=== PATIENT | female | born 1980 | race Caucasian/White ===

== ENCOUNTER 2018-06-23 08:33 | Outpatient (CLI) | payer BC, SELFPAY ==
[2018-06-23 11:26] LABS: Glucose 98 mg/dL (70-100)
== END 2018-06-23 08:53 ==
PROVIDERS: PCP Family Medicine; Visit Provider Family Medicine
DX: I10 Essential (primary) hypertension (principal); E66.9 Obesity, unspecified; Z13.1 Encounter for screening for diabetes mellitus
CPT/HCPCS: 36415; 82947

== ENCOUNTER 2018-07-19 01:57 | Outpatient (CLI) | payer BC, SELFPAY ==
--- NOTE | 2018-07-19 08:30 | SATEXT_ITS ---
July 19, 2018 0830h Assessment: Leah presents for nutritional counseling for weight management. She is in the contemplation phase of bariatric surgery. She is attending an informational session at [facility] next week. In the meantime, she describes a long a history of weight struggles despite calorie reduction, carbohydrate reduction , and various weight loss programs. She currently eats quite moderately. She may have a bowl of frosted mini wheats for breakfast, a equatorial guine[place] yogurt, a turkey sandwich, an ounce of chips, and an apple during the day. Supper is generally protein and a vegetable. She drinks water, coffee, and tea. Currently her physical activity includes her activities of daily life. She does climb many flights of stairs daily as she lives on the third floor and she uses the stairs at work frequently. She is also in the contemplative stage of using her spinning bike. Leah is 62 [address] scale today. Nutritional Diagnosis: Class 3 obesity as evidenced by BMI of 48.8 kg/m2 Intervention: We discussed that Leah eats quite moderately. She would like to drink enough water to stay adequately hydrated. She made an action plan to drink 48-64 oz. of water daily. She also made an action plan to set an alarm to eat lunch daily as she often forgets and can end up going many hours without eating. Leah verbalizes a high confidence that she can succeed with these action plans. Monitoring and Evaluation: 1. Will monitor PO intake and weight monthly. 2. Will evaluate progress with action plans and adjust as needed as well as continue to progress. Thank you for the referral. Total time spent face to face with patient was 32 minutes.
== END 2018-07-19 02:17 ==
PROVIDERS: PCP Family Medicine; Visit Provider Dietitian, Registered
DX: E66.9 Obesity, unspecified (principal); Z68.42 Body mass index [BMI] 45.0-49.9, adult; Z71.3 Dietary counseling and surveillance
CPT/HCPCS: 97802

== ENCOUNTER 2018-08-11 01:27 | Outpatient (CLI) | payer BC, SELFPAY ==
--- NOTE | 2018-08-18 14:34 | W.NUTRFU ---
Date of service: 08/11/18 Time of Service: 08:00 Nutritional Follow up NOTE: Leah returns for nutritional counseling for weight management. She demonstrates that she is taking the necessary steps required for bariatric surgery. She demonstrates a high motivation to maintain a healthy lifestyle of weight management. Leah followed through with her action plans from our last visit. She drinks the goal amount of water we discussed (48-86 oz. per day) and she is eating lunch daily. She continues to have cereal for breakfast, a turkey sandwich for lunch with fruit, and a protein and a vegetable for dinner, She states her next action plan will be to include using her spinning bike four days per week for 20 to 30 minutes each time. She states she is confident she will be successful with this plan. Leah is 62 and 276.4 lbs. Her BMI is 49 kg/m2 Will monitor her progress with her action plans, her PO intake and her weight monthly. Will evaluate her nutrition care plan and adjust as needed. Time Spent in Nutritional Counseling and Treatment: 20 minutes
== END 2018-08-11 01:47 ==
PROVIDERS: PCP Family Medicine; Visit Provider Dietitian, Registered
DX: E66.9 Obesity, unspecified (principal); Z68.42 Body mass index [BMI] 45.0-49.9, adult; Z71.3 Dietary counseling and surveillance
CPT/HCPCS: 97803

== ENCOUNTER 2018-08-11 09:44 | Outpatient (REF) | payer BC, SELFPAY ==
--- NOTE | 2018-08-11 09:25 | PAPFT_PTH ---
PATIENT: Leah Bran LOC: [facility] U#:[id number] AGE/SX: 37/F ROOM: RE08/11/[address]: SHAYNE Dixon : 1980 BED: DIS: 08/11/2018 SPEC #: [id number] RECD: 08/11/18 12:49 STATUS: BETI REQ #: [id number] CACHORRO: 08/11/18 09:[address]: Folra Erickson DEPT: [facility] Cytology RECD BY: Elisha Duncan ENTERED: 08/11/18 12:49 SP TYPE: PAPFT OTHR DR: Justin Chicas MD Tissues: 1 - CX/ENDOCX FOR PAP SMEARS Procedures: PAP THIN PREP/UVM Screening HPV DNA PROBE Comments: [id number]
== END 2018-08-11 10:04 ==
LOC: LBN 09:44
PROVIDERS: PCP Family Medicine; Visit Provider Nurse Practitioner Family
DX: Z12.4 Encounter for screening for malignant neoplasm of cervix (principal); Z11.51 Encounter for screening for human papillomavirus (HPV)
CPT/HCPCS: 88142; 87624

== ENCOUNTER 2018-08-25 14:10 | Outpatient (CLI) | payer BC, SELFPAY ==
[2018-08-25 16:56] LABS: ALT 36 U/L (12-78); AST 21 U/L (15-37); CREATININE 0.88 mg/dL (0.55-1.02); Cholesterol 145 mg/dL (50-200); HDL Cholesterol 51 mg/dL (40-60); LDL CHOLESTEROL 75 mg/dL (<100); Potassium 4.3 mmol/L (3.5-5.1); Triglyceride 66 mg/dL (30-150)
== END 2018-08-25 14:30 ==
PROVIDERS: PCP Family Medicine; Visit Provider Family Medicine
DX: I10 Essential (primary) hypertension (principal); E66.9 Obesity, unspecified
CPT/HCPCS: 36415; 80061; 83721; 82565; 84132; 84450; 84460

== ENCOUNTER 2018-09-01 01:24 | Outpatient (CLI) | payer BC, SELFPAY | END 2018-09-01 01:44 | PROVIDERS: PCP Family Medicine; Visit Provider Dietitian, Registered | DX: E66.8 Other obesity (principal); Z68.42 Body mass index [BMI] 45.0-49.9, adult; Z71.3 Dietary counseling and surveillance | CPT/HCPCS: 97803 ==

== ENCOUNTER 2019-08-13 12:04 | Outpatient (REF) | payer BC, SELFPAY ==
[2019-08-14 14:30] LABS: Chlamydia Result Negative (Negative); GC Result Negative (Negative)
== END 2019-08-13 12:24 ==
LOC: LBN 12:04
PROVIDERS: PCP Family Medicine; Visit Provider Nurse Practitioner Family
DX: Z11.3 Encounter for screening for infections with a predominantly sexual mode of transmission (principal)
CPT/HCPCS: 87491; 87591

== ENCOUNTER 2020-08-18 16:13 | Outpatient (REF) | payer OTHER, SELFPAY ==
[2020-08-19 12:49] LABS: Chlamydia Result Negative (Negative); GC Result Negative (Negative)
== END 2020-08-18 16:33 ==
LOC: LBN 16:13
PROVIDERS: PCP Family Medicine; Visit Provider Nurse Practitioner Family
DX: Z11.3 Encounter for screening for infections with a predominantly sexual mode of transmission (principal)
CPT/HCPCS: 87491; 87591

== ENCOUNTER 2020-09-08 01:13 | Outpatient (CLI) | payer OTHER, SELFPAY ==
--- NOTE | 2020-09-08 07:00 | DI.MAMMO_ITS ---
EXAM: MG MAMMO SCREENING CLINICAL HISTORY: screening,Z12.39 TECHNIQUE: Bilateral full field digital CC and MLO mammographic images were obtained with 3D tomosyn thesis and utilizing computer aided detection (CAD). COMPARISON: None. FINDINGS: Masses/Architectural Distortion: None seen. Microcalcifications: No suspicious pleomorphic-type are seen. Skin Thickening/Nipple Retraction: None. IMPRESSION: 1. No significant interval change with no specific features of malignancy noted. 2. Unless there is more urgent need, screening mammography is recommended, as per [employer] [place] guidelines. BI-RADS Category 1 - Negative Breast Density - Category B - Scattered areas of fibroglandular density Breast density category C or D implies that the patient has dense breast tissue. Dense breast tissue is very common and is not abnormal but dense breast tissue can make it harder to find cancer on a ma mmogram. Also, dense breast tissue may increase their breast cancer risk. This information about the result of the mammogram report was provided to the patient to raise their awareness. Use this report when you speak with the patient about their risks for breast cancer, which includes their family hist ory. At that time, you may recommend for more screening tests (Ultrasound or MRI) as they might be us eful based on their risk. A negative radiographic report should not delay biopsy if a dominant or clinically suspicious mass is present. Up to ten percent of cancers are not identified on mammography. A negative report may reinforce clinical impression. Adenosis and dense breasts may obscure an underlying neoplasm. False positive reports average 6 to 10%. Patient will receive a letter notifying them of these results.
== END 2020-09-08 01:33 ==
PROVIDERS: PCP Family Medicine; Visit Provider Nurse Practitioner Family
DX: Z12.31 Encounter for screening mammogram for malignant neoplasm of breast (principal)
CPT/HCPCS: 77063; 77067

== ENCOUNTER 2021-08-24 09:20 | Outpatient (REF) | payer OTHER, SELFPAY ==
--- NOTE | 2021-08-24 08:15 | PAPFT_PTH ---
PATIENT: Leah Bran LOC: [facility] U#:[id number] AGE/SX: 40/F ROOM: RE08/24/[address]: SHAYNE Dixon : 1980 BED: DIS: 08/24/2021 SPEC #: [id number] RECD: 08/24/21 12:52 STATUS: BETI REQ #: [id number] CACHORRO: 08/24/21 08:[address]: Flora Erickson DEPT: [facility] Cytology RECD BY: Elisha Duncan ENTERED: 08/24/21 12:53 SP TYPE: PAPFT OTHR DR: Justin Chicas MD Tissues: 1 - CX/ENDOCX FOR PAP SMEARS Procedures: PAP THIN PREP/UVM Screening HPV DNA PROBE Comments: [id number]
[2021-08-26 07:27] LABS: Chlamydia Result Negative (Negative); GC Result Negative (Negative)
== END 2021-08-24 09:21 | disposition home or self-care (01) ==
LOC: LBN 09:20
PROVIDERS: PCP Family Medicine; Visit Provider Nurse Practitioner Family
DX: Z11.3 Encounter for screening for infections with a predominantly sexual mode of transmission (principal); Z12.4 Encounter for screening for malignant neoplasm of cervix; Z11.51 Encounter for screening for human papillomavirus (HPV); R87.810 Cervical high risk human papillomavirus (HPV) DNA test positive
CPT/HCPCS: 87491; 87591; 88142; 87624

== ENCOUNTER 2021-09-11 01:08 | Outpatient (CLI) | payer OTHER, SELFPAY ==
--- NOTE | 2021-09-11 12:00 | DI.MAMMO_ITS ---
Exam(s) MAMMO SCREENING EXAM: MAMMO SCREENING CLINICAL HISTORY: screening TECHNIQUE: Mammograms were interpreted according to the usual protocol including computer analysis w [id number] CAD system, tomosynthesis and C-view imaging. COMPARISON: 2020 FINDINGS: The breasts are composed of mainly fatty density , Breast Density category A. No suspicious masses or suspicious microcalcifications are seen. No skin thickening or abnormal axillary lymph nodes are seen. There has been no significant change from prior exams. IMPRESSION: BI-RADS Category 1, Negative mammogram Yearly screening mammography is recommended. Breast Density - Category A, fatty density. A negative radiographic report should not delay biopsy if a dominant or clinically suspicious mass is present. Up to ten percent of cancers are not identified on mammography. A negative report may reinforce clinical impression. Adenosis and dense breasts may obscure an underlying neoplasm. False positive reports average 6 to 10%. Patient will receive a letter notifying them of these results.
== END 2021-09-11 01:28 ==
PROVIDERS: PCP Family Medicine; Visit Provider Nurse Practitioner Family
DX: Z12.31 Encounter for screening mammogram for malignant neoplasm of breast (principal)
CPT/HCPCS: 77063; 77067

== ENCOUNTER 2022-09-15 02:17 | Outpatient (CLI) | payer BC, SELFPAY ==
[2022-09-15 09:59] LABS: Anion Gap 7.2 mmol/L (3-11); BUN 15 mg/dL (7-18); CO2 28.8 mmol/L (21.0-32.0); CREATININE 0.8 mg/dL (0.55-1.02); Calculated LDL 61 mg/dL (<100); Chloride 105 mmol/L (98-107); Cholesterol 136 mg/dL (<200); Estimated GFR 94.28 (mL/min/1.73m2); Glucose 68 mg/dL (74-106); HDL Cholesterol 66 mg/dL (40-60); Sodium 141 mmol/L (136-145); TSH (W/Ref FT4) 2.07 uIU/mL (0.36-3.74); Triglyceride 48 mg/dL (<150)
== END 2022-09-15 02:18 | disposition home or self-care (01) ==
LOC: LBO 02:17
PROVIDERS: PCP Family Medicine; Visit Provider Family Medicine
DX: E03.9 Hypothyroidism, unspecified (principal); E78.5 Hyperlipidemia, unspecified; E87.1 Hypo-osmolality and hyponatremia
CPT/HCPCS: 36415; 80048; 80061; 84443

== ENCOUNTER 2022-09-15 09:59 | Outpatient (REF) | payer BC, SELFPAY ==
--- NOTE | 2022-09-15 08:50 | PAPFT_PTH ---
PATIENT: Leah Bran LOC: [facility] U#:[id number] AGE/SX: 41/F ROOM: RE09/15/[address]: Janneth Johnson NP : 1980 BED: DIS: 09/15/2022 SPEC #: [id number] RECD: 09/15/22 13:02 STATUS: CAMIGeovanni REQ #: [id number] CACHORRO: 09/15/22 08:[address]: Janneth Johnson NP DEPT: [facility] Cytology RECD BY: Elisha Duncan ENTERED: 09/15/22 13:02 SP TYPE: PAPFT OTHR DR: Justin Chicas MD Tissues: 1 - CX/ENDOCX FOR PAP SMEARS Procedures: PAP THIN PREP/UVM Screening HPV DNA PROBE Comments: [id number]
== END 2022-09-15 10:00 | disposition home or self-care (01) ==
LOC: LBN 09:59
PROVIDERS: PCP Family Medicine; Visit Provider Nurse Practitioner Women's Health
DX: Z12.4 Encounter for screening for malignant neoplasm of cervix (principal); R87.610 Atypical squamous cells of undetermined significance on cytologic smear of cervix (ASC-US); Z11.51 Encounter for screening for human papillomavirus (HPV); R87.810 Cervical high risk human papillomavirus (HPV) DNA test positive
CPT/HCPCS: 88142; 87624

== ENCOUNTER 2022-09-30 01:15 | Outpatient (CLI) | payer BC, SELFPAY ==
--- NOTE | 2022-09-30 07:30 | DI.MAMMO_ITS ---
Exam(s) MAMMO SCREENING EXAM: MAMMO SCREENING CLINICAL HISTORY: screening. TECHNIQUE: Bilateral full field digital CC and MLO mammographic images were obtained with 3D tomosyn thesis and utilizing computer aided detection (CAD). COMPARISON: Prior mammograms were reviewed. FINDINGS: There has been no significant change in the appearance and distribution of the fibroglandular tissue. There are no CAD designations. There are no new spiculated masses nor malignant appearing microcalcification groups. There is no significant architectural distortion nor skin thickening-retraction. IMPRESSION: No radiographic evidence of malignancy. BI-RADS Category 1 - Negative Breast Density - Category B - Scattered areas of fibroglandular density Breast density Category C or D implies that the patient has dense breast tissue. Dense breast tissue can make it harder to find cancer on a mammogram. Dense breast tissue is also associated with an incr eased risk of breast cancer. This information about the result of the mammogram report was provided to the patient to raise their awareness. Use this report when you speak with the patient about their risks for breast cancer, which includes their family history. At that time, you may recommend additional screening tests (Ultrasoun d or MRI) as these tests may add significant information. A negative radiographic report should not delay biopsy if a dominant or clinically suspicious mass is present. Up to ten percent of cancers are not identified on mammography. A negative report may reinforce clinical impression. Adenosis and dense breasts may obscure an underlying neoplasm. False positive reports average 6 to 10%. Patient will receive a letter notifying them of these results.
== END 2022-09-30 01:35 ==
LOC: DI 01:15
PROVIDERS: PCP Family Medicine; Visit Provider Nurse Practitioner Women's Health
DX: Z12.31 Encounter for screening mammogram for malignant neoplasm of breast (principal)
CPT/HCPCS: 77063; 77067

== ENCOUNTER 2022-10-18 09:23 | Outpatient (REF) | payer BC, SELFPAY ==
--- NOTE | 2022-10-18 08:30 | ENDO_PTH ---
PATIENT: Leah Bran LOC: [facility] U#:[id number] AGE/SX: 41/F ROOM: RE10/18/[address]: Evelyn Lugo DO : 1980 BED: DIS: 10/18/2022 SPEC #: [id number] RECD: 10/18/22 13:14 STATUS: BETI REQ #: [id number] CACHORRO: 10/18/22 08:[address]: Evelyn Lugo DEPT: Surgical Specimen RECD BY: Elisha Duncan ENTERED: 10/18/22 13:14 SP TYPE: Endo OTHR DR: Justin Chicas MD Tissues: 1 - ENDOCERVICAL BX/CURRETTE 2 - CERVICAL BIOPSY Procedures: GROSS AND MICRO LEVEL 4 Comments: [id number]
== END 2022-10-18 09:24 | disposition home or self-care (01) ==
LOC: LBN 09:23
PROVIDERS: PCP Family Medicine; Visit Provider Obstetrics & Gynecology
DX: N72 Inflammatory disease of cervix uteri (principal)
CPT/HCPCS: 88305

== ENCOUNTER 2023-09-20 11:12 | Outpatient (REF) | payer BC, SELFPAY ==
--- NOTE | 2023-09-20 09:30 | PAPFT_PTH ---
PATIENT: Leah Bran LOC: [facility] U#:[id number] AGE/SX: 42/F ROOM: RE09/20/[address]: Misty Crowder MD : 1980 BED: DIS: 09/20/2023 SPEC #: [id number] RECD: 09/20/23 11:38 STATUS: BETI REQ #: [id number] CACHORRO: 09/20/23 09:[address]: Misty Crowder DEPT: [facility] Cytology RECD BY: Elisha Duncan ENTERED: 09/20/23 11:39 SP TYPE: PAPFT OTHR DR: Justin Chicas MD Tissues: 1 - CX/ENDOCX FOR PAP SMEARS Procedures: PAP THIN PREP/UVM Screening HPV DNA PROBE Comments: [id number] (HPV 16 & 18/45)
== END 2023-09-20 11:13 | disposition home or self-care (01) ==
LOC: LBN 11:12
PROVIDERS: PCP Family Medicine; Visit Provider Obstetrics & Gynecology
DX: Z12.4 Encounter for screening for malignant neoplasm of cervix (principal); Z72.52 High risk homosexual behavior
CPT/HCPCS: 88142; 87624

== ENCOUNTER → 2023-10-04 02:34 | Outpatient (CLI) | payer BC, SELFPAY ==
--- NOTE | 2023-10-04 07:30 | DI.MAMMO_ITS ---
Exam(s) MAMMO SCREENING EXAM: MAMMO SCREENING Noel E 1 CLINICAL HISTORY: screening TECHNIQUE: Bilateral full field digital CC and MLO mammographic images were obtained with 3D tomosyn thesis and utilizing computer aided detection (CAD). COMPARISON: Available for comparison. FINDINGS: Masses/Architectural Distortion: None seen. Microcalcifications: No suspicious pleomorphic-type are seen. Skin Thickening/Nipple Retraction: None. IMPRESSION: 1. No significant interval change with no specific features of malignancy noted. 2. Unless there is more urgent need, screening mammography is recommended, as per [place] guidelines. BI-RADS Category 1 - Negative Breast Density - Category B - Scattered areas of fibroglandular density Breast density category C or D implies that the patient has dense breast tissue. Dense breast tissue is very common and is not abnormal but dense breast tissue can make it harder to find cancer on a ma mmogram. Also, dense breast tissue may increase their breast cancer risk. This information about the result of the mammogram report was provided to the patient to raise their awareness. Use this report when you speak with the patient about their risks for breast cancer, which includes their family hist ory. At that time, you may recommend for more screening tests (Ultrasound or MRI) as they might be us eful based on their risk. A negative radiographic report should not delay biopsy if a dominant or clinically suspicious mass is present. Up to ten percent of cancers are not identified on mammography. A negative report may reinforce clinical impression. Adenosis and dense breasts may obscure an underlying neoplasm. False positive reports average 6 to 10%. Patient will receive a letter notifying them of these results.
== END ==
PROVIDERS: PCP Family Medicine; Visit Provider Obstetrics & Gynecology
DX: Z12.31 Encounter for screening mammogram for malignant neoplasm of breast (principal)
CPT/HCPCS: 77063; 77067

== ENCOUNTER 2023-10-04 12:56 | Outpatient (REF) | payer BC, SELFPAY ==
[2023-10-06 20:26] LABS: Calprotectin <50.0 mcg/g
== END 2023-10-04 12:57 | disposition home or self-care (01) ==
LOC: LBN 12:56
PROVIDERS: PCP Family Medicine; Visit Provider Nurse Practitioner Adult Health
DX: R19.7 Diarrhea, unspecified (principal)
CPT/HCPCS: 83993

== ENCOUNTER 2024-10-03 04:15 | Outpatient (CLI) | payer BC, SELFPAY ==
[2024-10-03 12:57] LABS: Hemoglobin A1C 5.4 % (<5.7)
[2024-10-03 13:05] LABS: ALT 15 U/L (14-59); AST 14 U/L (15-37); Albumin 3.5 g/dL (3.4-5.0); Alkaline Phosphatase 77 U/L (46-116); Anion Gap 10.3 mmol/L (3-11); BUN 11 mg/dL (7-18); Bilirubin, Total 0.46 mg/dL (0.2-1.0); CO2 23.7 mmol/L (21.0-32.0); CREATININE 0.9 mg/dL (0.55-1.02); Calculated LDL 53 mg/dL (<100); Chloride 105 mmol/L (98-107); Cholesterol 130 mg/dL (<200); Estimated GFR 80.84 (mL/min/1.73m2); Glucose 90 mg/dL (74-106); HDL Cholesterol 69 mg/dL (40-60); Potassium 3.7 mmol/L (3.5-5.1); Sodium 139 mmol/L (136-145); TSH 1.44 uIU/mL (0.36-3.74); Total Protein 7.7 g/dL (6.4-8.2); Triglyceride 43 mg/dL (<150)
== END 2024-10-03 04:16 | disposition home or self-care (01) ==
PROVIDERS: PCP Family Medicine; Visit Provider Nurse Practitioner Acute Care
DX: E66.01 Morbid (severe) obesity due to excess calories (principal); I10 Essential (primary) hypertension
CPT/HCPCS: 36415; 80053; 80061; 83036; 84443

== ENCOUNTER 2024-10-12 00:18 | Outpatient (CLI) | payer BC, SELFPAY ==
--- NOTE | 2024-10-12 08:02 | DI.MAMMO_ITS ---
Exam(s) MAMMO SCREENING EXAM: MAMMO SCREENING CLINICAL HISTORY: screening TECHNIQUE: Bilateral full field digital CC and MLO mammographic images were obtained with 3D tomosyn thesis and utilizing computer aided detection (CAD). COMPARISON: Available for comparison. FINDINGS: Masses/Architectural Distortion: There is slight increase in size of an area of nodularity in the upp er right breast on the MLO view. Microcalcifications: No suspicious pleomorphic-type are seen. Skin Thickening/Nipple Retraction: None. IMPRESSION: 1. Slight increase in size of an area of nodularity in the upper right breast seen on the MLO view 7 cm from the nipple. 2. This area should be further evaluated with spot compression view and limited right breast ultrasou nd. BI-RADS Category 0 - Incomplete: Need additional imaging evaluation Breast Density - Category B - Scattered areas of fibroglandular density Breast density category C or D implies that the patient has dense breast tissue. Dense breast tissue is very common and is not abnormal but dense breast tissue can make it harder to find cancer on a ma mmogram. Also, dense breast tissue may increase their breast cancer risk. This information about the result of the mammogram report was provided to the patient to raise their awareness. Use this report when you speak with the patient about their risks for breast cancer, which includes their family hist ory. At that time, you may recommend for more screening tests (Ultrasound or MRI) as they might be us eful based on their risk. A negative radiographic report should not delay biopsy if a dominant or clinically suspicious mass is present. Up to ten percent of cancers are not identified on mammography. A negative report may reinforce clinical impression. Adenosis and dense breasts may obscure an underlying neoplasm. False positive reports average 6 to 10%. Patient will receive a letter notifying them of these results.
== END 2024-10-12 00:38 ==
LOC: DI 00:18
PROVIDERS: PCP Family Medicine; Visit Provider Obstetrics & Gynecology
DX: Z12.31 Encounter for screening mammogram for malignant neoplasm of breast (principal); R92.323 Mammographic fibroglandular density, bilateral breasts
CPT/HCPCS: 77063; 77067

== ENCOUNTER 2024-10-23 02:30 | Outpatient (CLI) | payer BC, SELFPAY ==
--- NOTE | 2024-10-23 | DI.US_ITS ---
Exam(s) MG MAMMO SCREEN CALL BACK UNI US BREAST RT COMPLETE EXAM: MG MAMMO SCREEN CALL BACK UNI CLINICAL HISTORY: SLIGHT INCREASE SIZE AREA NODULARITY UPPER RT BREAST 7 CM FROM NIPPLE R92.8. TECHNIQUE: Unilateral right breast spot mammographic images obtained with 3D tomosynthesisand utiliz ing computer aided detection (CAD). . Complete right breast Ultrasound was also performed, including all 4 quadrants, the retroareolar oralia on, and the ipsilateral axilla. COMPARISON: Prior mammograms were reviewed. This additional imaging was performed due to findings described on the recent screening mammogram of 10/12/2024. FINDINGS: DIAGNOSTIC MAMMOGRAM: Additional mammographic views performed todaydoes not completely dissipate the finding although does make it exhibit multiple small circular densities COMPLETE RIGHT BREAST ULTRASOUND: Ultrasound performed today reveals findings 11 o'clock position which corresponds to the finding on t he mammogram and has appearance of a conglomeration of microcysts in this region. No solid lesions n oted. No other focal ultrasound findings in all 4 quadrants Scanning of the ipsilateral axilla reveals no significant adenopathy. IMPRESSION: 1. Benign-appearing right breast upper quadrant findings as above. Appropriate follow-up is repeat right breast mammogram and ultrasound in 6 months. The patient was informed of these findings and recommendations by myself prior to leaving the departm ent today. BI-RADS Category 3 - 6 month - Probably Benign Finding: Recommend follow-up mammography in 6 months Breast Density - Category B - Scattered areas of fibroglandular density Breast density Category C or D implies that the patient has dense breast tissue. Dense breast tissue can make it harder to find cancer on a mammogram. Dense breast tissue is also associated with an incr eased risk of breast cancer. This information about the result of the mammogram report was provided to the patient to raise their awareness. Use this report when you speak with the patient about their risks for breast cancer, which includes their family history. At that time, you may recommend additional screening tests (Ultrasoun d or MRI) as these tests may add significant information. A negative radiographic report should not delay biopsy if a dominant or clinically suspicious mass is present. Up to ten percent of cancers are not identified on mammography. A negative report may reinforce clinical impression. Adenosis and dense breasts may obscure an underlying neoplasm. False positive reports average 6 to 10%. Patient will receive a letter notifying them of these results.
== END 2024-10-23 02:50 ==
LOC: DI 02:30
PROVIDERS: PCP Family Medicine; Visit Provider Obstetrics & Gynecology
DX: R92.8 Other abnormal and inconclusive findings on diagnostic imaging of breast (principal); Z12.31 Encounter for screening mammogram for malignant neoplasm of breast; R92.323 Mammographic fibroglandular density, bilateral breasts; D24.1 Benign neoplasm of right breast
CPT/HCPCS: 76642; 77063; 77067

== ENCOUNTER 2025-04-29 09:32 | Outpatient (CLI) | payer BC, SELFPAY ==
--- NOTE | 2025-04-29 06:00 | DI.US_ITS ---
Exam(s) MG MAMMO DIAGNOSTIC UNI US BREAST RT COMPLETE EXAM: MG MAMMO DIAGNOSTIC UNI-RIGHT AND COMPLETE RIGHT BREAST ULTRASOUND CLINICAL HISTORY: 6-month f/u,r92.8,ruq breast findings. TECHNIQUE: Unilateral RIGHT BREAST CC AND MLO mammographic images were obtained with 3D tomosynthesis technique and utilizing computer aided detection (CAD). COMPLETE RIGHT BREAST ULTRASOUND was performed including all 4 quadrants as well as the axillary regions. COMPARISON: Prior mammograms were reviewed, the most recent being October 2024. Ultrasound performed at that time was reviewed FINDINGS: DIAGNOSTIC RIGHT BREAST MAMMOGRAM: The previously described asymmetric tissue towards the upper outer quadrant 11 o'clock position remains unchanged mammographically. There are no new spiculated masses nor malignant-appearing microcalcification groups. No new architectural distortion or skin thickening-traction. COMPLETE RIGHT BREAST ULTRASOUND: The benign-appearing conglomeration microcysts at the 11 o'clock position remains unchanged from the ultrasound examination October 2024. No solid lesions seen in all 4 quadrants. Scanning of the right axilla is negative for significant adenopathy. IMPRESSION: 1. Stable benign-appearing right breast findings. No radiographic evidence of malignancy. 2. Stable appearance of the ultrasound examination. Appropriate follow-up is to keep this patient on a yearly mammogram schedule, this implying that her next bilateral mammogram would be in October 2025, with earlier imaging if a self detected breast change is noted.. The patient was informed of the findings and follow-up recommendations by myself prior to leaving the department today. BI-RADS Category 2 - Benign Findings Breast Density - Category B - There are scattered areas of fibroglandular density. Breast density Category C or D implies that the patient has dense breast tissue. Dense breast tissue can make it harder to find cancer on a mammogram. Dense breast tissue is also associated with an increased risk of breast cancer. This information about the result of the mammogram report was provided to the patient to raise their awareness. Use this report when you speak with the patient about their risks for breast cancer, which includes their family history. At that time, you may recommend additional screening tests (Ultrasound or MRI) as these tests may add significant information. A negative radiographic report should not delay biopsy if a dominant or clinically suspicious mass is present. Up to ten percent of cancers are not identified on mammography. A negative report may reinforce clinical impression. Adenosis and dense breasts may obscure an underlying neoplasm. False positive reports average 6 to 10%. Patient will receive a letter notifying them of these results.
== END 2025-04-29 09:52 ==
LOC: DI 09:32
PROVIDERS: PCP Family Medicine; Visit Provider Obstetrics & Gynecology
DX: R92.8 Other abnormal and inconclusive findings on diagnostic imaging of breast (principal); Z12.31 Encounter for screening mammogram for malignant neoplasm of breast
CPT/HCPCS: 76642; 77061; 77065; G0279